=== PATIENT | female | born 1955 | race Caucasian/White ===

== ENCOUNTER 2022-08-29 14:25 | Outpatient (CLI) | payer MEDICARE | END 2022-08-29 14:26 | disposition home or self-care (01) | LOC: CSHWCC 14:25 | PROVIDERS: ATTEND Nurse Practitioner Family | DX: T81.89XD Other complications of procedures, not elsewhere classified, subsequent encounter (principal) | CPT/HCPCS: 11300; 97139; G0463; 88305; 99203 ==

== ENCOUNTER 2023-07-03 09:47 | Outpatient (CLI) | payer OTHER | END 2023-07-03 09:48 | disposition home or self-care (01) | LOC: CSHULT 09:47 | PROVIDERS: ATTEND Nurse Practitioner Family | DX: R22.32 Localized swelling, mass and lump, left upper limb (principal); D17.22 Benign lipomatous neoplasm of skin and subcutaneous tissue of left arm | CPT/HCPCS: 76999 ==

== ENCOUNTER 2024-04-07 09:46 | Outpatient (CLI) | payer OTHER | END 2024-04-07 09:47 | disposition home or self-care (01) | LOC: CSHRAD 09:46 | PROVIDERS: ATTEND Student in an Organized Health Care Education/Training Program | DX: M54.89 Other dorsalgia (principal); K57.32 Diverticulitis of large intestine without perforation or abscess without bleeding | CPT/HCPCS: 74176 ==

== ENCOUNTER 2025-06-30 13:28 | Emergency (ER) | payer MEDICARE ==
[2025-06-30] MEDS ORDERED: Lidocaine Viscous Sol 2% 15 ml UD Cup ONE (14:18)
[2025-06-30 14:26] LABS: Glucose, Urine (Dipstick) Normal (Negative); Leukocyte Negative (Negative); Protein, Urine (Dipstick) Negative (Neg-Trace); Specific Gravity, Urine 1.010 (1.005-1.030)
[2025-06-30 15:08] LABS: Bacteria/HPF None Seen HPF (None Seen); CAUTI Indications for Culture Pelvic or flank pain; RBC/HPF None Seen HPF (0-3); WBC/HPF None Seen HPF (0-3)
[2025-06-30 15:09] LABS: Urine Culture Reflex No No
== END 2025-06-30 14:50 | disposition home or self-care (01) ==
LOC: CSHERS 13:28
DX: T19.2XXA Foreign body in vulva and vagina, initial encounter (principal); N76.0 Acute vaginitis; I10 Essential (primary) hypertension; W45.8XXA Other foreign body or object entering through skin, initial encounter
CPT/HCPCS: 81001; 87480; 87510; 87660; 99283